=== PATIENT | male | born 1990 | race Two or more races ===

== ENCOUNTER → 2020-07-12 | Outpatient (CLI) | payer MEDICAID ==
[~2020-07-12] MED LIST: OMNIPAQUE 350 MG/ML, 100ML BOTTLE ONE
[2020-07-13 10:31] LABS: CREATININE 0.74 mg/dL (0.7-1.3)
== END | disposition home or self-care (01) ==
LOC: RAD 18:47
PROVIDERS: ATTEND Physician Assistant
DX: K59.09 Other constipation (principal); R10.9 Unspecified abdominal pain; E11.9 Type 2 diabetes mellitus without complications; Z77.098 Contact with and (suspected) exposure to other hazardous, chiefly nonmedicinal, chemicals
CPT/HCPCS: 36415; 74177; 82565; Q9967; 82550